=== PATIENT | male | born 1965 | race Caucasian/White ===

== ENCOUNTER 2020-05-14 23:41 | Emergency (ER) | payer OTHER ==
[~2020-05-14] VITALS: Ht 175.3 cm; Wt 90.7 kg
[2020-05-14] MEDS ORDERED: APIX5TAB PO (23:57)
[2020-05-14] MEDS ORDERED: METO25TA6 PO (23:57)
[2020-05-14] MEDS ORDERED: PRAV40TA PO (23:57)
[2020-05-14] MEDS ORDERED: ASPI81TA31 PO (23:57)
--- NOTE | 2020-05-14 23:59 | NUR ---
[facility] at bedside with patient.
[2020-05-15 00:07] LABS: BASOPHILS % (AUTO) 0.6 % (0.0-2.0); EOSINOPHILS % (AUTO) 0.9 % (0.0-7.0); HEMATOCRIT 33.3 % (36.7-47.1); HEMOGLOBIN 11.2 g/dL (12.5-16.3); LYMPHOCYTES % (AUTO) 40.2 % (20.5-51.5); MEAN CORPUSCULAR HEMOGLOBIN 29.1 uug (23.8-33.4); MEAN CORPUSCULAR HGB CONC 34 g/dL (32.5-36.3); MEAN CORPUSCULAR VOLUME 86.3 fL (73.0-96.2); MONOCYTES # (AUTO) 0.4 K/uL (2.0-10.0); MONOCYTES % (AUTO) 7.8 % (0.0-11.0); NEUTROPHILS # (AUTO) 2.5 K/uL (1.8-8.9); NEUTROPHILS % (AUTO) 50.5 % (38.5-71.5); PLATELET COUNT (AUTO) 411 K/uL (152-348); RED BLOOD CELL COUNT(AUTO) 3.86 MIL/uL (4.06-5.63)
[2020-05-15 00:15] LABS: CREATININE 1.3 mg/dL (0.6-1.3)
--- NOTE | 2020-05-15 00:23 | NUR ---
Call placed to [facility] for medical records. 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
[2020-05-15 00:27] LABS: BILIRUBIN,DIRECT 0.1 mg/dL (0.0-0.2); BILIRUBIN,TOTAL 0.3 mg/dL (0.2-1.0); TOTAL PROTEIN, SERUM 7.3 g/dL (6.4-8.2)
--- NOTE | 2020-05-15 01:09 | NUR ---
Patient does not wish to proceed with medical care recommended by Dr. Cleveland. Patient given information related to possible complications, up to and including , which could occur as a result of leaving the hospital at this time. Patient verbalizes understanding of risks involved due to leaving against medical advice. Patient has signed AMA form. IV removed. Catheter intact and site benign. Pressure and 4x4 gauze applied to site. No bleeding noted. Patient wants to leave because he has "something to do". Patient understand risks, and has been educated.
[2020-05-15 01:10] VITALS: BP 112/89
== END 2020-05-15 01:14 | disposition left against medical advice (07) ==
LOC: ER 23:44
DX: R07.9 Chest pain, unspecified (principal); R73.09 Other abnormal glucose; E78.5 Hyperlipidemia, unspecified; D68.61 Antiphospholipid syndrome; Z86.718 Personal history of other venous thrombosis and embolism; Z79.01 Long term (current) use of anticoagulants
CPT/HCPCS: 36415; 70030-TC; 71045; 85025; 85730; 93005; A4663